=== PATIENT | male | born 1940 | race Caucasian/White ===

== ENCOUNTER 2019-12-14 14:00 | Inpatient (IN) | payer OTHER ==
[~2019-12-14] VITALS: Ht 170.2 cm; Wt 92.8 kg
[2019-12-14] MEDS ORDERED: SODIUM CHLORIDE 0.9% 1,000 ML IVB ONE (14:43)
[2019-12-14 16:10] LABS: Basophils # (auto) 0 10 ^3/uL (0-0.2); Basophils % (auto) 0.6 % (0.0-2.0); Eosinophils # (auto) 0.1 10 ^3/uL (0-0.8); Eosinophils % (auto) 1.3 % (0.0-7.0); Hematocrit 45.5 % (36.0-46.0); Hemoglobin 14.8 g/dL (12.2-16.2); Lymphocytes # (auto) 1.4 10 ^3/uL (0.4-5.4); Mean Corpuscular Hemoglobin 31.3 pg (28.0-32.0); Mean Corpuscular Hgb Conc. 32.6 g/dL (32.0-36.0); Mean Corpuscular Volume 95.9 fL (80.0-100.0); Monocytes # (auto) 0.5 10 ^3/uL (0-1.3); Monocytes % (auto) 6.3 % (0.0-12.0); Neutrophils # (auto) 5.5 10 ^3/uL (1.6-8.6); Neutrophils % (auto) 72.8 % (37.0-80.0); Nucleated Red Blood Cells % 0.1 %; Platelet Count (auto) 177 10^3/uL (140-450); Red Blood Cells 4.75 10^6/uL (4.0-5.20); Red Cell Distribution Width 14.3 % (11.8-14.3); White Blood Cell 7.5 10^3/uL (4.4-10.8)
[2019-12-14 16:15] LABS: Albumin 3.2 g/dL (3.4-5.0); Anion Gap 5 (5-15); Blood Urea Nitrogen 12 mg/dL (7-18); Calcium 9.3 mg/dL (8.5-10.1); Carbon Dioxide 29 mmol/L (21-32); Chloride 106 mmol/L (98-107); Glucose 161 mg/dL (74-106); Magnesium 2.2 mg/dL (1.6-2.6); Potassium 4.5 mmol/L (3.5-5.1); Sodium 140 mmol/L (136-145)
[2019-12-14 16:21] LABS: Alanine Aminotransferase 20 U/L (13-56); Alkaline Phosphatase 64 U/L (45-117); Aspartate Aminotransferase 23 U/L (15-37); BUN/Creatinine Ratio 12.9; Bilirubin, Total 0.8 mg/dL (0.2-1.0); GFR African American 74 mL/min; GFR Non-African American 61 mL/min; Total Protein 6.3 g/dL (6.4-8.2)
[2019-12-14 16:27] LABS: INR 1.13 (0.9-1.15); Partial Thromboplastin Time 23.9 sec (23.64-32.05)
[2019-12-14 16:45] LABS: Blood Alcohol < 3.0 mg/dL (0-5)
[2019-12-14] MEDS ORDERED: ACETAMINOPHEN 500 MG TAB PO PRN (18:45)
[2019-12-14] MEDS ORDERED: DEXTROSE (50%) 50ML SYRG IV PRN (18:45)
[2019-12-14] MEDS ORDERED: LACTULOSE 20Gm/30ML SOLN PO PRN (18:45)
[2019-12-14] MEDS ORDERED: ONDANSETRON HCL 4 MG/2 ML VIAL IV PRN (18:45)
[2019-12-14] MEDS ORDERED: traMADol HCL 50 MG TAB PO PRN (18:45)
[2019-12-14] MEDS ORDERED: MORPHINE SULF INJ 2 MG/ML SYRINGE 1ML IV PRN (18:45)
[2019-12-14] MEDS ORDERED: NITROGLYCERIN 0.4 MG SL TAB SL PRN (18:45)
[2019-12-14] MEDS: SODIUM CHLORIDE 0.9% 1,000 ML IV SCH (19:00)
[2019-12-14] MEDS ORDERED: LEVOTHYROXINE SODIUM 100 MCG/5 ML INJ IV ONE (19:15)
[2019-12-14 20:13] VITALS: BP 156/70
--- NOTE | 2019-12-14 20:13 | NUR ---
Telemetry admit from ER DAVE LANGLEY admitted to Telemetry unit. Patient oriented to ALEXSANDER LOPES, primary RN, unit, room, bed, and unit policies regarding patient care and visiting hours. Patient now on continuous telemetry monitoring, tele box # 49 and telemetry reading on arrival to unit is sinus bradycardia. Patient denies dizziness or headache at this time. Patient weighed by bedscale and encouraged to call as needed. All questions and concerns addressed, patient verbalized understanding. Bed is locked in lowest position, side rails x 2 are up, call light is within reach, and bed alarm is on.
[2019-12-14] MEDS ORDERED: GLIP10TA9 PO (21:21)
[2019-12-14] MEDS ORDERED: LISI10TA6 PO (21:21)
[2019-12-14] MEDS ORDERED: GABA300C10 PO (21:21)
[2019-12-14] MEDS ORDERED: ATOR20TA PO (21:21)
[2019-12-14] MEDS ORDERED: LEVO112T4 PO (21:23)
[2019-12-14] MEDS ORDERED: METO25TA93 PO (21:23)
[2019-12-14] MEDS ORDERED: ASPI-404 PO (21:23)
[2019-12-14] MEDS ORDERED: [UNRECOGNIZED DRUG - CODE] PO (21:25)
[2019-12-14] MEDS ORDERED: MULTCAP45 PO (21:25)
[2019-12-14] MEDS ORDERED: HYDR12.56 PO (21:27)
[2019-12-14] MEDS ORDERED: ATORVASTATIN 20 MG TAB PO SCH (22:00)
[2019-12-14] MEDS: ACCU-CHEK COMFORT CURVE STRIP VI SCH (22:00)
[2019-12-14 22:16] VITALS: BP 156/70
[2019-12-14 22:31] LABS: Urine WBC None Seen /hpf (0 - 3)
[2019-12-14] MEDS: InsuLIN REG 1unit/0.01ml Soln (100units/ml) SC SCH (22:46)
[2019-12-14 22:52] LABS: Urine Bacteria NONE SEEN /hpf (None Seen); Urine Blood Negative /uL (Negative); Urine Specific Gravity 1.009 (1.001-1.035)
[2019-12-14 23:01] LABS: Alcohol, Urine < 3.0 mg/dL (0-5); Amphetamine Screen, Urine NEGATIVE (NEGATIVE); Barbiturate Scree,Urine NEGATIVE (NEGATIVE); Benzodiazephine Screen, Urine NEGATIVE (NEGATIVE); Cannabinoid Screen, Urine NEGATIVE (NEGATIVE); Cocaine Screen, Urine NEGATIVE (NEGATIVE); Opiate Scree,Urine NEGATIVE (NEGATIVE); Phencyclidine Screen, Urine NEGATIVE (NEGATIVE)
[2019-12-15 03:19] VITALS: BP 131/78
[2019-12-15 05:48] VITALS: BP 102/63
[2019-12-15] MEDS: InsuLIN REG 1unit/0.01ml Soln (100units/ml) SC SCH ×2 (06:09→11:29)
[2019-12-15] MEDS: SODIUM CHLORIDE 0.9% 1,000 ML IV SCH (06:09)
[2019-12-15] MEDS: ACCU-CHEK COMFORT CURVE STRIP VI SCH ×2 (06:09→11:30)
[2019-12-15] MEDS ORDERED: LEVOTHYROXINE SODIUM 25 MCG TAB PO SCH (07:00)
--- NOTE | 2019-12-15 07:16 | NUR ---
Opening Shift Note Assumed care of patient, awake and alert. No S/S of distress/SOB or pain. Instructed on POC and to call for assist PRN, will continue to monitor for changes Q1hr and PRN. Bed is set in lowest locked position with side rails up x 2 for safety and call light is within reach.
[2019-12-15 08:05] VITALS: BP 137/68
[2019-12-15 09:00] VITALS: BP 137/68
[2019-12-15] MEDS ORDERED: ENOXAPARIN SOD 40 MG/0.4 ML SYRINGE SC SCH (10:00)
[2019-12-15] MEDS ORDERED: ASPirin 81 mg TAB PO SCH ×2 (10:00)
[2019-12-15 10:48] LABS: Free T3 2.81 pg/mL (2.3-4.2); Free T4 (Free Thyroxine) 0.99 ng/dL (0.89-1.76)
[2019-12-15] MEDS ORDERED: ADENOSINE 78 MG in GIVE UN-DILUTED 0 ML IV STA (12:15)
--- NOTE | 2019-12-15 12:30 | NUR ---
Orthostatic Vital Signs Supine: BP 158/77, HR 77, O2 Sat 95% Sitting: BP 146/76, HR 82, O2 Sat 95% Standing: BP 111/69, HR 98, O2 Sat 97%
[2019-12-15 13:00] VITALS: BP 134/55
--- NOTE | 2019-12-15 13:00 | NUR ---
Refusal of stress test Patient states he does not want to have a stress test at this time. BUTADIENE COMPRESSOR OPERATOR aware Yana Pham, and is at bedside. Patient made aware of indication for test and benefits. All questions answered at this time, and patient verbalized understanding. Patient states he would like to speak to his , and at this time patient is refusing to go forward with the stress test. Will follow up with patient.
[2019-12-15] MEDS ORDERED: METO25TA93 PO (14:09)
--- NOTE | 2019-12-15 14:16 | NUR ---
MD at bedside Dr. Mao, updated pt on POC and plan for discharge. Patient verbalized understanding.
[2019-12-15 14:29] VITALS: BP 134/55
--- NOTE | 2019-12-15 16:37 | NUR ---
Discharge instructions given as ordered. Encourage to follow up with PMD as instructed. All questions and concerns addressed. Patient verbalized understanding. IV removed with catheter intact, pressure dressing applied. Telemetry unit returned to ICU. Patient taken to family member's vehicle via wheelchair with all personal belongings, accompanied by staff. No distress noted at time of departure.
[2019-12-15] MEDS ORDERED: APIXABAN 2.5 MG TAB PO SCH (22:00)
== END 2019-12-15 16:37 | disposition home or self-care (01) | DRG 310 ==
LOC: ER 14:00 → EDBD 14:00 → EDSEX 14:00 → TELE 14:01 → TELE-WESTW 20:17
PROVIDERS: ADMIT Internal Medicine; ATTEND Hospitalist
DX: R00.1 Bradycardia, unspecified (principal); I48.91 Unspecified atrial fibrillation; I10 Essential (primary) hypertension; E11.9 Type 2 diabetes mellitus without complications; E03.9 Hypothyroidism, unspecified; E78.5 Hyperlipidemia, unspecified; I25.10 Atherosclerotic heart disease of native coronary artery without angina pectoris; F41.9 Anxiety disorder, unspecified; I44.0 Atrioventricular block, first degree; T44.7X5A Adverse effect of beta-adrenoreceptor antagonists, initial encounter; Z79.84 Long term (current) use of oral hypoglycemic drugs; Z79.82 Long term (current) use of aspirin; Z79.899 Other long term (current) drug therapy; Z86.73 Personal history of transient ischemic attack (TIA), and cerebral infarction without residual deficits; Y92.89 Other specified places as the place of occurrence of the external cause
CPT/HCPCS: 36415; 70450; 71045; 80053; 80307; 80320; 81001; 82550; 82962; 83036; 83735; 83880; 84439; 84443; 84481; 84484; 85025; 85610; 85730; 93306; 93886; 93971; G0378; J0153; J1815; J3490

== ENCOUNTER 2020-06-08 18:51 | Inpatient (IN) | payer OTHER ==
[~2020-06-08] VITALS: Ht 175.3 cm; Wt 87.3 kg
[~2020-06-08 18:51] MED LIST: ASPI-543 PO; ATOR20TA PO; GABA300C10 PO; GLIP10TA9 PO; LEVO112T4 PO; LISI-648 PO; METO25TA93 PO; MULTCAP45 PO
[2020-06-08] MEDS ORDERED: SODIUM CHLORIDE 0.9% 500 ML IV ONE (19:30)
[2020-06-08 19:48] LABS: Basophils # (auto) 0 10 ^3/uL (0-0.2); Basophils % (auto) 0.1 % (0.0-2.0); Eosinophils # (auto) 0 10 ^3/uL (0-0.8); Eosinophils % (auto) 0.1 % (0.0-7.0); Hematocrit 36.4 % (41.0-53.0); Hemoglobin 12.1 g/dL (13.5-17.5); Lymphocytes # (auto) 1.3 10 ^3/uL (0.4-5.4); Lymphocytes % (auto) 5.8 % (10.0-50.0); Mean Corpuscular Hemoglobin 29.8 pg (28.0-32.0); Mean Corpuscular Hgb Conc. 33.1 g/dL (32.0-36.0); Mean Corpuscular Volume 89.8 fL (80.0-100.0); Monocytes # (auto) 0.4 10 ^3/uL (0-1.3); Monocytes % (auto) 1.8 % (0.0-12.0); Neutrophils # (auto) 20.8 10 ^3/uL (1.6-8.6); Neutrophils % (auto) 92.2 % (37.0-80.0); Platelet Count (auto) 339 10^3/uL (140-450); Red Blood Cells 4.05 10^6/uL (4.5-5.90); White Blood Cell 22.6 10^3/uL (4.4-10.8)
[2020-06-08 20:05] LABS: INR 1.24 (0.9-1.15)
[2020-06-08 20:07] LABS: Alanine Aminotransferase 15 U/L (16-61); Albumin 2.3 g/dL (3.4-5.0); Anion Gap 6 (5-15); Blood Urea Nitrogen 46 mg/dL (7-18); Calcium 9.1 mg/dL (8.5-10.1); Carbon Dioxide 32 mmol/L (21-32); Chloride 100 mmol/L (98-107); Magnesium 2.2 mg/dL (1.6-2.6); Potassium 3.5 mmol/L (3.5-5.1); Sodium 138 mmol/L (136-145)
[2020-06-08 20:23] LABS: Alkaline Phosphatase 71 U/L (45-117); Aspartate Aminotransferase 24 U/L (15-37); BUN/Creatinine Ratio 13.3; Bilirubin, Total 0.5 mg/dL (0.2-1.0); GFR African American 22 mL/min; GFR Non-African American 18 mL/min
[2020-06-08 20:27] LABS: Glucose 46 mg/dL (74-106)
[2020-06-08] MEDS ORDERED: DEXTROSE (50%) 50ML SYRG IV ONE (20:30)
[2020-06-08] MEDS ORDERED: VANCOMYCIN 1GM/250ML 250 ML IV ONE (21:00)
[2020-06-08] MEDS ORDERED: PIPERACILLIN-TAZOB 3.375GM 100 ML IV ONE (21:00)
[2020-06-08] MEDS ORDERED: SODIUM CHLORIDE 0.9% 1,000 ML IV ONE (21:00)
[2020-06-08] MEDS ORDERED: DEXTROSE 10% 1,000 ML IV ONE ×2 (21:30→22:30)
[2020-06-08 21:34] LABS: Urine Bacteria FEW /hpf (None Seen); Urine Blood 2+ /uL (Negative); Urine Hyaline Cast FEW /lpf (0 - 2); Urine Mucus FEW (None Seen); Urine Specific Gravity 1.008 (1.001-1.035); Urine WBC 6 /hpf (0 - 3)
[2020-06-08] MEDS ORDERED: ONDANSETRON HCL 4 MG/2 ML VIAL IV PRN (22:30)
[2020-06-08] MEDS ORDERED: NITROGLYCERIN 0.4 MG SL TAB SL PRN (22:30)
[2020-06-08] MEDS ORDERED: MORPHINE SULF INJ 2 MG/ML SYRINGE 1ML IV PRN (22:30)
[2020-06-08] MEDS ORDERED: DEXTROSE (50%) 50ML SYRG IV PRN (22:30)
[2020-06-08] MEDS: InsuLIN REG 1unit/0.01ml Soln (100units/ml) SC SCH (23:57)
[2020-06-08] MEDS: ACCU-CHEK COMFORT CURVE STRIP VI SCH (23:57)
[2020-06-09] VITALS (7 sets, daily range): BP systolic 90–121; BP diastolic 41–109
--- NOTE | 2020-06-09 00:10 | NUR ---
Telemetry admit from ER DAVE HAMMER admitted to Telemetry unit after SBAR received. Patient oriented to primary RN, unit, room, bed, and unit policies regarding patient care and visiting hours. Patient now on continuous telemetry monitoring, tele box #41 and telemetry reading on arrival to unit is NSR. Patient placed on bedside oxygen, weighed by bedscale and encouraged to call if they need something. All questions and concerns addressed, patient verbalized understanding. Bed in lowest locked position, call light within reach, side rails up x2, fall precautions in place. Will continue to monitor Q1hr and PRN.
--- NOTE | 2020-06-09 02:45 | NUR ---
Rounds Patient confused AO to self only. Patient removed both IVs and attempted to get out of bed. Patient reoriented. Blood sugar at 73. Charge nurse made aware. Will continue to monitor.
--- NOTE | 2020-06-09 03:00 | NUR ---
IV insertion IV access obtained, via clean sterile technique by inserting 22 gauge catheter at after attempt. IV secured properly. No trauma to site. Patient tolerated procedure well.
[2020-06-09] MEDS: ACETAMINOPHEN 325 MG TAB PO PRN (03:25)
--- NOTE | 2020-06-09 03:30 | NUR ---
Rounds Patient is AOx4. No distress noted at this time. Fall precautions remain in place.
[2020-06-09] MEDS: InsuLIN REG 1unit/0.01ml Soln (100units/ml) SC SCH ×6 (03:40→23:54)
[2020-06-09] MEDS: ACCU-CHEK COMFORT CURVE STRIP VI SCH ×6 (03:40→23:54)
[2020-06-09 06:43] LABS: Basophils # (auto) 0 10 ^3/uL (0-0.2); Basophils % (auto) 0.1 % (0.0-2.0); Eosinophils # (auto) 0.1 10 ^3/uL (0-0.8); Eosinophils % (auto) 0.3 % (0.0-7.0); Hematocrit 35.9 % (41.0-53.0); Hemoglobin 11.9 g/dL (13.5-17.5); Lymphocytes # (auto) 1.2 10 ^3/uL (0.4-5.4); Lymphocytes % (auto) 6.8 % (10.0-50.0); Mean Corpuscular Hemoglobin 29.9 pg (28.0-32.0); Mean Corpuscular Hgb Conc. 33.2 g/dL (32.0-36.0); Mean Corpuscular Volume 89.9 fL (80.0-100.0); Monocytes # (auto) 0.2 10 ^3/uL (0-1.3); Monocytes % (auto) 1.3 % (0.0-12.0); Neutrophils # (auto) 16.7 10 ^3/uL (1.6-8.6); Neutrophils % (auto) 91.5 % (37.0-80.0); Platelet Count (auto) 301 10^3/uL (140-450); Red Blood Cells 3.99 10^6/uL (4.5-5.90); Red Cell Distribution Width 16.1 % (11.8-14.3); White Blood Cell 18.2 10^3/uL (4.4-10.8)
[2020-06-09 06:58] LABS: Calcium 8.7 mg/dL (8.5-10.1); Potassium 3.8 mmol/L (3.5-5.1)
[2020-06-09 07:01] LABS: BUN/Creatinine Ratio 16.7; Bilirubin, Total 0.6 mg/dL (0.2-1.0); Total Protein 5.3 g/dL (6.4-8.2)
[2020-06-09] MEDS ORDERED: DEXTROSE 10% 1,000 ML IV SCH ×2 (07:15→22:40)
--- NOTE | 2020-06-09 08:45 | NUR ---
Spoke to family After password verified. states if patient is stable, she would like patient transferred to [facility]. Informed of transfer process and hospitalist on the case will determine if patient is stable for transfer and has to put in request with healthcare social worker. Informed that this nurse will make oncoming MD aware but cannot guarantee that patient will be transferred per her request.
[2020-06-09] MEDS: cefTRIAXone 1GM/50ML D5W 50 ML IV SCH (08:58)
[2020-06-09] MEDS: PANTOPRAZOLE 40 MG TAB PO SCH (08:58)
--- NOTE | 2020-06-09 09:07 | NUR ---
Paging Dr. Moses Paging addiction psychiatrist hospitalist to make him aware of patient's low blood sugar. First BS check: 51, Second BS check: 50. Patient is alert. States that he has a stomach ache and "doesn't feel right". Provided patient with 2 cartons of orange juice. Upon reassessment BS: 71. Patient still stating that he doesn't feel good. Paging MD to make aware. Patient is alert and can make needs known. Bed is low, locked with 2x side rails up. Call light is within reach. Bed alarm is on for safety. Waiting for call back.
--- NOTE | 2020-06-09 09:50 | NUR ---
Spoke with family Spoke to patient's sonLauro after password was verified. Discussing POC including pending GI consult. All questions answered. Will continue to monitor Q1hr and PRN.
--- NOTE | 2020-06-09 09:59 | NUR ---
Sergioing Adonis Mata To inform him of patient's latest BS result. LVM with answering service and provided call back number.
--- NOTE | 2020-06-09 11:01 | NUR ---
Spoke with Adonis Mata Discussing current POC with MD. Informed MD of low BS level. New orders received. Addendum: 06/09/20 at 1126 by Vickie Lopez RN RN Cancelling all verbal orders. Per Dr. Adonis Mata, Dr. Mao will be MD that will follow up on this patient. stated that Dr. Mao will be calling this nurse for possible orders.
--- NOTE | 2020-06-09 12:35 | NUR ---
Dr. Mao at bedside MD aware of low blood sugars. Patient advised to stop taking Glipizide at home. No new orders received.
--- NOTE | 2020-06-09 12:39 | NUR ---
Dr. Sonia Brown at bedside For GI consult. Sonia Brown recommending EGD. Possible EGD for Monday 06/11. Sonia Brown and Dr. Mao discussing POC. Sonia Brown to input orders.
[2020-06-09] MEDS: DEXTROSE 10% 1,000 ML IV SCH (13:15)
[2020-06-09] MEDS ORDERED: ENOXAPARIN SOD 30 MG/0.3 ML SYRINGE SC ONE (13:15)
[2020-06-09] MEDS: SUCRALFATE 1 GM/10 ML ORAL SUSP PO SCH (17:26)
--- NOTE | 2020-06-09 17:45 | NUR ---
LVM for Dr. Mao 1700 VS: BP:90/41 mmHG, HR:85 BPM. Patient is asymptomatic at this time. This nurse raised the foot of the bed, patient currently has D10 at 60 ml/hr running per MD order. 1742 VS reassessment -BP: 95/54 mmHg HR: 92 bpm. Patient asymptomatic at this time. LVM for Dr. Mao. Waiting for call back.
--- NOTE | 2020-06-09 17:51 | NUR ---
Received call back Spoke to Dr. Mao in regards to patient's blood pressure. Received new orders for one liter of NS bolus. Orders read back to verify. Will carry out.
[2020-06-09] MEDS: NYSTATIN (MOUTH-THROAT) 500,000 UNITS/5 ML SUSP MT SCH ×2 (17:58→22:08)
[2020-06-09] MEDS ORDERED: SODIUM CHLORIDE 0.9% 1,000 ML IV ONE (18:00)
[2020-06-09] MEDS: ALUM & MAG HYDROX-SIMETH LIQ(MAALOX) 30 ML PO PRN (18:43)
--- NOTE | 2020-06-09 19:30 | NUR ---
Opening Shift Note Assumed care of patient, awake and alert x2. No S/S of distress/SOB or pain. Instructed on POC and to call for assist PRN, will continue to monitor for changes. Bed in lowest locked position, call light within reach, side rails up x2, fall precautions in place.
--- NOTE | 2020-06-09 21:40 | NUR ---
Rounds Patient remains confused, IV was pulled out, catheter intact, pressure dressing applied. Hematuria noted in lucio, will notify MD. Charge nurse notified, this nurse requesting sitter for patient safety. Fall precautions in place.
--- NOTE | 2020-06-09 22:50 | NUR ---
Spoke with MD Spoke with MD Schumacher in regards to hematuria noticed in lucio. Per MD, monitor for now and call MD back if hematuria worsens.
--- NOTE | 2020-06-10 02:08 | NUR ---
Spoke with MD Spoke with Dr. Schumacher in regards to increased hematuria and minimal clots noticed in lucio. New orders received and read back for verification.
--- NOTE | 2020-06-10 03:00 | NUR ---
Urine Urine has begun to clear without CBI from dark red to pink. Charge nurse has been aware. Will continue to monitor urine.
--- NOTE | 2020-06-10 03:20 | NUR ---
IV insertion IV access obtained, via clean sterile technique by inserting 22 gauge catheter at left upper arm after 1 attempt. IV secured properly. No trauma to site. Patient tolerated well. Sitter now at bedside for patient safety.
[2020-06-10] MEDS: ACCU-CHEK COMFORT CURVE STRIP VI SCH ×2 (04:00→08:25)
[2020-06-10] MEDS: InsuLIN REG 1unit/0.01ml Soln (100units/ml) SC SCH ×2 (04:20→08:00)
[2020-06-10 05:00] VITALS: BP 104/72
[2020-06-10] MEDS: DEXTROSE 10% 1,000 ML IV SCH (05:55)
[2020-06-10] MEDS: NYSTATIN (MOUTH-THROAT) 500,000 UNITS/5 ML SUSP MT SCH ×4 (06:00→21:39)
[2020-06-10 06:26] LABS: Potassium 3.9 mmol/L (3.5-5.1)
[2020-06-10] MEDS: SUCRALFATE 1 GM/10 ML ORAL SUSP PO SCH ×3 (06:26→17:00)
[2020-06-10 06:30] LABS: Basophils # (auto) 0 10 ^3/uL (0-0.2); Basophils % (auto) 0.2 % (0.0-2.0); Eosinophils # (auto) 0 10 ^3/uL (0-0.8); Eosinophils % (auto) 0.2 % (0.0-7.0); Hematocrit 37.4 % (41.0-53.0); Hemoglobin 12.3 g/dL (13.5-17.5); Lymphocytes # (auto) 1.2 10 ^3/uL (0.4-5.4); Lymphocytes % (auto) 6.9 % (10.0-50.0); Mean Corpuscular Hemoglobin 29.8 pg (28.0-32.0); Mean Corpuscular Volume 90.4 fL (80.0-100.0); Monocytes # (auto) 0.2 10 ^3/uL (0-1.3); Monocytes % (auto) 0.9 % (0.0-12.0); Neutrophils # (auto) 16.6 10 ^3/uL (1.6-8.6); Neutrophils % (auto) 91.8 % (37.0-80.0); Platelet Count (auto) 302 10^3/uL (140-450); Red Blood Cells 4.13 10^6/uL (4.5-5.90); Red Cell Distribution Width 16.1 % (11.8-14.3); White Blood Cell 18.1 10^3/uL (4.4-10.8)
[2020-06-10 06:32] LABS: BUN/Creatinine Ratio 20.6; Calcium 8.8 mg/dL (8.5-10.1)
[2020-06-10] MEDS: cefTRIAXone 1GM/50ML D5W 50 ML IV SCH (08:35)
[2020-06-10 09:00] VITALS: BP 102/62
[2020-06-10] MEDS: D5W/SOD CHLO 0.9% 1,000 ML IV SCH (09:10)
[2020-06-10] MEDS: PANTOPRAZOLE 40 MG TAB PO SCH (10:00)
[2020-06-10] MEDS ORDERED: DEXTROSE (50%) 50ML SYRG IV PRN (11:15)
[2020-06-10 13:54] VITALS: BP 113/42
--- NOTE | 2020-06-10 14:30 | NUR ---
Assessment Patient is an 79-year-old male who is alert and oriented. Prior to admission patient lived with his Palma and functioned with assistance. Patient refer me to his . Contact patient Palma . Advised Palma there is a social service consult for home health safety evaluation. Per Palma she would like patient to be placed at a skill nursing facility to get stronger. Informed Palma I will inform bedside nurse. Informed Palma a physical therapy evaluation will be needed to determine if patient meets criteria. Informed Palma she has the right to participate in all discharge planning. Palma verbalized understanding and agreed discharge plan. Bedside nurse was informed regarding SNF order and physical therapy evaluation. Addendum: 06/10/20 at 1431 by KAYLA CHASE Amended: Links added.
--- NOTE | 2020-06-10 16:27 | NUR ---
D/C planning Per social service consult for SNF placement. Faxed clinical information to [facility]. Pending acceptance.
--- NOTE | 2020-06-10 16:55 | NUR ---
CONSENT FOR EGD VIA TELEPHONE CONSENT BY PT , MADINA HAMMER. SECOND RN VERIFIED CONSENT FOR PROCEDURE. 1:1 SITTER AT BEDSIDE CONTINUES. PT WITH POOR APPETITE, COOPERATIVE WITH CARES.
[2020-06-10 17:00] VITALS: BP 102/58
[2020-06-10] MEDS: TAMSULOSIN HYDROCHLORIDE 0.4 MG CAP PO SCH (18:16)
--- NOTE | 2020-06-10 19:10 | NUR ---
Assumed care of patient from day shift RN, patient awake and alert and oriented x4. No S/S of distress/SOB or pain. Instructed on POC and to call for assist PRN, safety measures in place bed in lowest position, side rails up x2 and call light with in reach. will continue to monitor for changes Q1hr and PRN.
[2020-06-10 20:00] VITALS: BP 93/73
--- NOTE | 2020-06-10 21:18 | NUR ---
Obtained telephone consent Spoke with patients Palma regarding blood consent and she authorized consent for blood. consent signed by two nurses.
[2020-06-10] MEDS: ACETAMINOPHEN 325 MG TAB PO PRN (21:40)
--- NOTE | 2020-06-10 21:40 | NUR ---
pain medications Patient stated 3/10 pain to abdomen. Tylenol 650mg administered at this time.
[2020-06-10 21:53] VITALS: BP 93/73
--- NOTE | 2020-06-10 22:40 | NUR ---
pain reassessment Patient reassessed at this time patient stated 0/10 pain.
[2020-06-10] MEDS: ALUM & MAG HYDROX-SIMETH LIQ(MAALOX) 30 ML PO PRN (23:09)
--- NOTE | 2020-06-10 23:16 | NUR ---
IV insertion/iv removal IV DC'd due to leaking , DC'd with clean sterile technique, catheter fully intact. Pressure dressing applied to site. Patient tolerated well.IV access obtained, via clean sterile technique by inserting 22 gauge catheter at right forearm after 1 attempt. IV secured properly. No trauma to site. Patient tolerated well.
[2020-06-11] VITALS (9 sets, daily range): BP systolic 88–110; BP diastolic 39–70
[2020-06-11] MEDS: D5W/SOD CHLO 0.9% 1,000 ML IV SCH (01:51)
--- NOTE | 2020-06-11 05:00 | NUR ---
IV removal IV to right arm DC'd with clean sterile technique, catheter fully intact. Pressure dressing applied to site. Patient tolerated well. IV insertion IV access obtained, via clean sterile technique by inserting 20 gauge catheter at left upper arm after 1 attempt. IV secured properly. No trauma to site. Patient tolerated well.
[2020-06-11] MEDS: NYSTATIN (MOUTH-THROAT) 500,000 UNITS/5 ML SUSP MT SCH ×4 (05:51→21:57)
[2020-06-11] MEDS: SUCRALFATE 1 GM/10 ML ORAL SUSP PO SCH ×3 (06:23→17:00)
[2020-06-11 06:33] LABS: Hematocrit 33.6 % (41.0-53.0); Hemoglobin 10.9 g/dL (13.5-17.5); Mean Corpuscular Hemoglobin 29.6 pg (28.0-32.0); Mean Corpuscular Hgb Conc. 32.5 g/dL (32.0-36.0); Mean Corpuscular Volume 90.9 fL (80.0-100.0); Platelet Count (auto) 268 10^3/uL (140-450); Red Cell Distribution Width 16.5 % (11.8-14.3); White Blood Cell 9.2 10^3/uL (4.4-10.8)
[2020-06-11 06:34] LABS: Potassium 3.8 mmol/L (3.5-5.1)
[2020-06-11 06:41] LABS: BUN/Creatinine Ratio 26.1; Calcium 8.5 mg/dL (8.5-10.1)
[2020-06-11 06:43] LABS: Band Neutrophils % (manual) 0; Basophils % (manual) 0 (0.0-2.0); Blast Cells 0; Metamyelocytes % 0; Myelocytes % 0; Promyelocytes % 0; Reactive Lymphocytes 0
--- NOTE | 2020-06-11 07:11 | NUR ---
Endorsed care to day shift RN. patient denies sob/pain or distress, safety measures in place bed in lowest position side rails up x2 and call light with in reach. Patient has a sitter in room.
[2020-06-11 07:28] LABS: Eosinophils % (manual) 1 (0-7); Lymphocytes % (manual) 17 (10.0-50.0); Monocytes % (manual) 1 (0-12)
[2020-06-11] MEDS: cefTRIAXone 1GM/50ML D5W 50 ML IV SCH (09:05)
[2020-06-11] MEDS: PANTOPRAZOLE 40 MG TAB PO SCH (09:29)
--- NOTE | 2020-06-11 11:17 | NUR ---
1115 06/11/20 I called [facility] and requested to speak with Keymodule Assembly Machine Tender Candy regarding authorization for patient's continued stay as well as to let her know that [facility] is accepting, need authorization for SNF and transportation. Per Duncan, Candy is in a meeting and she will give me a call back.
[2020-06-11] MEDS: ACCU-CHEK COMFORT CURVE STRIP VI SCH ×3 (11:30→22:04)
--- NOTE | 2020-06-11 11:42 | NUR ---
1140 06/11/20 I received a call from [facility] Armor Officer Candy, she confirmed that inpatient stay continues to be authorized with previously provided authorization number. I made her aware that [facility] has accepted the patient. Per Candy, she will forward this information to her SNF team and she will call me back with authorization numbers for SNF as well as transportation.
--- NOTE | 2020-06-11 13:00 | NUR ---
PT OFF UNIT FOR PROCEDURE
--- NOTE | 2020-06-11 13:43 | NUR ---
I received a call from [facility] Policy Checker Candy ([phone]) letting me know that the authorization number for [facility] is [id number], and for transportation to call [facility] (they do not need prior authorization) [phone].
[2020-06-11] MEDS ORDERED: LIDOCAINE VISCOUS 2% 15ML UD ONE (14:31)
[2020-06-11] MEDS ORDERED: SODIUM CHLORIDE LOCK 10 ML ONE (14:31)
[2020-06-11] MEDS ORDERED: diphenhdrAMINE HCL 50 MG/1 ML VL ONE (14:32)
[2020-06-11] MEDS ORDERED: fentaNYL CITRATE 100 MCG/2 ML VL ONE (14:32)
[2020-06-11] MEDS ORDERED: MIDAZOLAM HCL 5 MG/ML-1ML VIAL ONE (14:32)
--- NOTE | 2020-06-11 15:52 | NUR ---
D/C Planning Per Pattie with [facility] patient has been accepted to room 208 bed 1 accepting , Dr. Granados. Per Lorrie with [facility] needs to be contact upon d/c day.
[2020-06-11] MEDS ORDERED: HYDROCORTISONE SOD SUCC 100 MG/2ML INJ VIAL IV ONE (16:30)
[2020-06-11] MEDS: SODIUM CHLORIDE 0.9% 1,000 ML IV SCH (17:26)
--- NOTE | 2020-06-11 18:05 | NUR ---
PT OFF FLOOR APPROX. 1300 FOR EGD. PER POST OP REPORT, PT HYPOTENSIVE POST OP BP 70s OVER 30s. DR FAUSTIN NOTIFIED, NEW ORDERS RECEIVED. PT BACK IN ROOM. LAST B/P . MONITORING CLOSELY. 1:1 SITTER AT BEDSIDE.
[2020-06-11] MEDS: TAMSULOSIN HYDROCHLORIDE 0.4 MG CAP PO SCH (18:22)
--- NOTE | 2020-06-11 18:22 | NUR ---
PICKARD CATHETER REMOVED.
--- NOTE | 2020-06-11 19:15 | NUR ---
Shift opening note Assumed care of patient from day shift RN, awake and alert and oriented to name and place. No S/S of distress/SOB or pain. Instructed on POC and to call for assist PRN, safety measures in place bed in lowest position side rails up x2 and call light with in reach. will continue to monitor for changes Q1hr and PRN.
[2020-06-11] MEDS: PANTOPRAZOLE 40 MG/10 ML VIAL INJ IV SCH (21:58)
--- NOTE | 2020-06-11 22:00 | NUR ---
assessed patients bladder is not distended and patient states no discomfort. Per sitter/ aide patient has had a large episode of urine incontinence since start of shift.
--- NOTE | 2020-06-11 22:30 | NUR ---
Elicia from [facility] called requesting patient update on transfer to SNF.
[2020-06-12] MEDS: ALUM & MAG HYDROX-SIMETH LIQ(MAALOX) 30 ML PO PRN (04:01)
--- NOTE | 2020-06-12 04:10 | NUR ---
Telephone call to Dr. Mao patient has urinary retention. New orders to insert Blevins catheter. Order read back and verified by Dr. Mao.
--- NOTE | 2020-06-12 04:31 | NUR ---
upon entering patients room from gathering Blevins catheter supplies, patient stated he had voided. Bladder scan showed minimal residual. Blevins catheter held as patient reports no urinary retention or discomfort at this time. Patient was educated to report any signs and symptoms of retention.
[2020-06-12 05:00] VITALS: BP_SYST 93; BP_SYST 98; BP_DIAS 43
[2020-06-12] MEDS: NYSTATIN (MOUTH-THROAT) 500,000 UNITS/5 ML SUSP MT SCH ×2 (06:23→12:04)
[2020-06-12] MEDS: SUCRALFATE 1 GM/10 ML ORAL SUSP PO SCH ×2 (06:23→12:04)
[2020-06-12] MEDS: ACCU-CHEK COMFORT CURVE STRIP VI SCH ×2 (06:23→11:30)
--- NOTE | 2020-06-12 07:10 | NUR ---
Endorsed care to day shift RN. Patient has no signs of sob/ pain or distress. Safety measures in place bed in lowest position, side rails up x2, and call light with in reach.
[2020-06-12] MEDS: SODIUM CHLORIDE 0.9% 1,000 ML IV SCH (09:29)
[2020-06-12] MEDS: cefTRIAXone 1GM/50ML D5W 50 ML IV SCH (09:29)
[2020-06-12] MEDS ORDERED: SODIUM CHLORIDE 0.9% 1,000 ML IV ONE (09:45)
[2020-06-12] MEDS: PANTOPRAZOLE 40 MG/10 ML VIAL INJ IV SCH (10:00)
--- NOTE | 2020-06-12 10:25 | NUR ---
BP 86/50. PULSE 71. NS BOLUS INITIATED.
[2020-06-12] MEDS ORDERED: FLUDROCORTISONE ACETATE 0.1 MG TAB PO ONE (10:30)
--- NOTE | 2020-06-12 11:18 | NUR ---
re-assessment Patient is discharged and cleared for transport. Per Brody housing case manager she has authorized [facility] Auth number [id number]. [facility] will transport patient to [facility] room 208 bed 1. Per Jaye at [facility] patient is cleared to go at anytime. Katarina MCGEE has been notified and given the phone number to [facility] for report [phone]. Addendum: 06/12/20 at 1120 by Hannah CHASE Amended: Links added.
--- NOTE | 2020-06-12 11:37 | NUR ---
BP 97/50 POST BOLUS.
--- NOTE | 2020-06-12 14:01 | NUR ---
REPORT CALLED TO DUNIA AT [facility]. AWAITING TRANSPORTATION AT THIS TIME.
--- NOTE | 2020-06-12 14:37 | NUR ---
RECEIVED CALL FROM [facility], THEY ARE RUNNING LATE FOR PATIENT SILK FOLDER. WILL ARRIVE AT FACILITY AT [phone] REPORTEDLY.
--- NOTE | 2020-06-12 15:27 | NUR ---
[facility] PICKED UP PT FROM FACILITY APPROX. [phone].
--- NOTE | 2020-06-12 15:30 | NUR ---
SPOKE WITH PT MDAINA VIA TELEPHONE YESTERDAY 06/11/2020 THAT PT WILL BE DISCHARGED TODAY TO [facility]. UNABLE TO REACH TODAY VIA TELEPHONE TO NOTIFY HER THAT PT HAS BEEN DISCHARGED.
== END 2020-06-12 15:20 | DRG 380 ==
LOC: EDBD 18:51 → EDUNIT# 18:51 → ER 18:51 → TELE-CENTR 18:52
PROVIDERS: ADMIT Nurse Practitioner; ATTEND Internal Medicine
PROC: 0DB68ZX Excision of Stomach, Via Natural or Artificial Opening Endoscopic, Diagnostic (ICD-10-PCS; 2020-06-11)
PROC: 0DB58ZX Excision of Esophagus, Via Natural or Artificial Opening Endoscopic, Diagnostic (ICD-10-PCS; 2020-06-11)
PROC: 0DB98ZX Excision of Duodenum, Via Natural or Artificial Opening Endoscopic, Diagnostic (ICD-10-PCS; principal; 2020-06-11 14:45)
DX: K22.10 Ulcer of esophagus without bleeding (principal); E43 Unspecified severe protein-calorie malnutrition; N39.0 Urinary tract infection, site not specified; N18.4 Chronic kidney disease, stage 4 (severe); N17.9 Acute kidney failure, unspecified; I95.9 Hypotension, unspecified; E86.0 Dehydration; R31.9 Hematuria, unspecified; E11.22 Type 2 diabetes mellitus with diabetic chronic kidney disease; E11.649 Type 2 diabetes mellitus with hypoglycemia without coma; E78.5 Hyperlipidemia, unspecified; I12.9 Hypertensive chronic kidney disease with stage 1 through stage 4 chronic kidney disease, or unspecified chronic kidney disease; Z20.828 Contact with and (suspected) exposure to other viral communicable diseases; K26.9 Duodenal ulcer, unspecified as acute or chronic, without hemorrhage or perforation; K29.70 Gastritis, unspecified, without bleeding; K29.80 Duodenitis without bleeding; K44.9 Diaphragmatic hernia without obstruction or gangrene; N40.0 Benign prostatic hyperplasia without lower urinary tract symptoms; Z79.84 Long term (current) use of oral hypoglycemic drugs; Z83.3 Family history of diabetes mellitus; Z86.73 Personal history of transient ischemic attack (TIA), and cerebral infarction without residual deficits; Z87.19 Personal history of other diseases of the digestive system; Z99.3 Dependence on wheelchair; Z87.891 Personal history of nicotine dependence
CPT/HCPCS: 36415; 43239; 70450; 71045; 71250; 74176; 80048; 80053; 81001; 82962; 83605; 83735; 83880; 84484; 85007; 85025; 85027; 85379; 85610; 85730; 86850; 86900; 86901; 87040; 87081; 87086; 96361; 96365; 96366; 96367; 96368; 96376; 97530; C9113; G0378; J0696; J1815; J2250; J2405; J2543; J7042

== ENCOUNTER 2020-07-06 01:09 | Inpatient (IN) | payer OTHER ==
[~2020-07-06] VITALS: Ht 172.7 cm; Wt 89.9 kg
[2020-07-06 02:30] LABS: Mean Corpuscular Hemoglobin 27.7 pg (28.0-32.0); Mean Corpuscular Hgb Conc. 30.3 g/dL (32.0-36.0); Mean Corpuscular Volume 91.3 fL (80.0-100.0)
[2020-07-06 02:31] LABS: Basophils # (auto) 0.1 10 ^3/uL (0-0.2); Basophils % (auto) 0.7 % (0.0-2.0); Eosinophils # (auto) 0.2 10 ^3/uL (0-0.8); Eosinophils % (auto) 1.1 % (0.0-7.0); Hematocrit 30.7 % (41.0-53.0); Hemoglobin 9.3 g/dL (13.5-17.5); Lymphocytes # (auto) 1.9 10 ^3/uL (0.4-5.4); Lymphocytes % (auto) 13.5 % (10.0-50.0); Monocytes % (auto) 7.3 % (0.0-12.0); Neutrophils # (auto) 10.8 10 ^3/uL (1.6-8.6); Neutrophils % (auto) 77.4 % (37.0-80.0); Platelet Count (auto) 194 10^3/uL (140-450); Red Blood Cells 3.36 10^6/uL (4.5-5.90); Red Cell Distribution Width 19.2 % (11.8-14.3); White Blood Cell 13.9 10^3/uL (4.4-10.8)
[2020-07-06 02:40] LABS: Albumin 1.9 g/dL (3.4-5.0)
[2020-07-06 02:42] LABS: Potassium 2.7 mmol/L (3.5-5.1)
[2020-07-06 02:43] LABS: BUN/Creatinine Ratio 9.4; Bilirubin, Total 0.3 mg/dL (0.2-1.0); Lactic Acid w/Reflex 3.5 mmol/L (0.4-2.0); Total Protein 5.4 g/dL (6.4-8.2)
[2020-07-06] MEDS ORDERED: POTASSIUM CHL 20 Meq TABLET PO ONE (02:45)
[2020-07-06] MEDS ORDERED: POTASSIUM CHL 20MEQ/100ML 100 ML IV ONE (02:45)
[2020-07-06] MEDS ORDERED: DEXTROSE 10% 1,000 ML IV ONE (10:45)
[2020-07-06 11:22] LABS: Urine Bacteria FEW /hpf (None Seen); Urine Blood TRACE /uL (Negative); Urine Specific Gravity 1.005 (1.001-1.035); Urine WBC 1 /hpf (0 - 3)
[2020-07-06] MEDS ORDERED: MORPHINE SULF INJ 2 MG/ML SYRINGE 1ML IV PRN (13:30)
[2020-07-06] MEDS ORDERED: NITROGLYCERIN 0.4 MG SL TAB SL PRN (13:30)
[2020-07-06] MEDS ORDERED: SODIUM CHLORIDE 0.9% 1,000 ML IV ONE (13:30)
[2020-07-06] MEDS: CLINDAMYCIN 300MG IV 50 ML IV SCH ×2 (15:03→22:00)
[2020-07-06] MEDS: ACCU-CHEK COMFORT CURVE STRIP VI SCH ×6 (16:05→23:48)
[2020-07-06] MEDS: D5W/SOD CHL 0.45% 1,000 ML IV SCH (18:39)
[2020-07-06 20:30] VITALS: BP 135/41
--- NOTE | 2020-07-06 21:00 | NUR ---
Telemetry admit from ER DAVE HAMMER admitted to Telemetry unit after SBAR received. Patient oriented to Holley Bean RN primary RN, unit, room, bed, and unit policies regarding patient care and visiting hours. Patient now on continuous telemetry monitoring, tele box # 62 and telemetry reading on arrival to unit is SR. Patient weighed by bedscale and encouraged to call if they need something. All questions and concerns addressed, patient verbalized understanding. Bed in lowest and locked position, bed alarm on, call light within reach, will continue to monitor Note: []
[2020-07-06 22:00] VITALS: BP 135/41
[2020-07-06] MEDS: GABAPENTIN 300 MG CAP PO SCH (22:00)
--- NOTE | 2020-07-06 22:15 | NUR ---
Blood sugar of 234, noted no PRN med at this time. Paged hospitalist, awaiting call back
[2020-07-06 22:41] LABS: BUN/Creatinine Ratio 9.3; Calcium 9.1 mg/dL (8.5-10.1); Potassium 3.1 mmol/L (3.5-5.1)
[2020-07-06] MEDS ORDERED: DEXTROSE (50%) 50ML SYRG IV PRN (22:45)
--- NOTE | 2020-07-06 22:45 | NUR ---
Hospitalist Efren called back and updated on patient's status and reason for call. Received new order at this time (see Emar), acknowledged and read back.
--- NOTE | 2020-07-06 23:00 | NUR ---
WOUND CARE NOTE Noted multiple wounds on right temporal area, bilateral heels and sacrum present upon admission. Pictures taken for reference. Applied alisson boots to both feet. Wound consult in place
[2020-07-06] MEDS: InsuLIN REG 1unit/0.01ml Soln (100units/ml) SC SCH (23:47)
--- NOTE | 2020-07-07 01:05 | NUR ---
Patient is confused and thought he's in [facility]. Removed his gown and tried to pull his IV out. Oriented to time, place and situation. Patient cooperative to care at times. Maintained bed alarm on, bed in lowest and locked position, call light within reach, will continue to monitor
--- NOTE | 2020-07-07 01:15 | NUR ---
Offload bilateral heels with alisson boots
[2020-07-07 01:27] VITALS: BP 135/51
[2020-07-07 05:00] VITALS: BP 133/70
[2020-07-07] MEDS: LEVOTHYROXINE SODIUM 112 MCG TAB PO SCH (06:07)
[2020-07-07] MEDS: CLINDAMYCIN 300MG IV 50 ML IV SCH ×3 (06:07→21:42)
[2020-07-07] MEDS: ACCU-CHEK COMFORT CURVE STRIP VI SCH ×4 (06:07→22:24)
[2020-07-07] MEDS: InsuLIN REG 1unit/0.01ml Soln (100units/ml) SC SCH ×4 (06:08→22:25)
[2020-07-07] MEDS: D5W/SOD CHL 0.45% 1,000 ML IV SCH ×2 (06:09→14:00)
--- NOTE | 2020-07-07 06:48 | NUR ---
Dr. Isabel at bedside
--- NOTE | 2020-07-07 07:35 | NUR ---
Opening Shift Note Assumed care of patient, awake and alert. No S/S of distress/SOB or pain. Instructed on POC and to call for assistance PRN bed is locked and in lowest position bed rails up x2, call light within reach, cozzy boots on. Will continue to monitor for changes Q1hr and PRN.
[2020-07-07 09:00] VITALS: BP 127/58
[2020-07-07] MEDS: cefTRIAXone 1GM/50ML D5W 50 ML IV SCH (10:19)
[2020-07-07] MEDS: ASPirin-EC 81 mg tab PO SCH (10:20)
[2020-07-07] MEDS: GABAPENTIN 300 MG CAP PO SCH ×2 (10:20→21:43)
[2020-07-07] MEDS: METOPROLOL SUCCINATE XL 50 MG TAB PO SCH (10:23)
[2020-07-07] MEDS: LISINOPRIL 10 MG TAB PO SCH (10:24)
--- NOTE | 2020-07-07 11:10 | NUR ---
WOUND CARE NOTE: IN TO SEE PATIENT AT THIS TIME PER WOUND CARE CONSULT REQUEST. PATIENT WAS ADMITTED TO [facility] WITH DIAGNOSIS OF HYPOGLYCEMIA. CURRENT FRANKLIN SCORE IS 15. PATIENT IS ASSESSED TO ASSIST WITH HIS TURNING/REPOSITIONING. ALL WOUNDS WERE PHOTOGRAPHED UPON PRESENTATION TO [facility] BY BEDSIDE NURSE FOR REFERENCE. PATIENT HAS MULTIPLE WOUNDS, INCLUDING ABRASION TO RIGHT TEMPORAL SCALP, DTI TO BILAT HEELS, LEFT BUTTOCK, UNSTAGEABLE PRESSURE INJURY TO LEFT HEEL, STAGE 2 LEFT BUTTOCK, AND SKIN TEAR TO THE RIGHT FOREARM. ALL WOUND STATS CAN BE FOUND WITHIN WOUND ASSESSMENT, LINKED TO THIS NOTE. RECOMMEND: FREQUENT TURN SCHEDULE Q 2 HOURS, PRN CONDITION PERMITS, WITH PRESSURE REDISTRIBUTION USING PILLOWS/WEDGES, SPECIALTY AIR MATTRESS, DOC FOAM BOOTS TO BILATERAL FEET/HEELS, EOD/PRN DRESSING CHANGE TO RIGHT FOREARM, BID/PRN DRESSING CHANGE TO LEFT BUTTOCK/SACRUM WOUNDS WITH ZGUARD, OPTIFOAM GENTLE DRESSINGS, DIETARY CONSULT, SKIN/WOUND CARE PLAN, CONTINUED MONITORING BY WOUND CARE TEAM. Addendum: 07/07/20 at 1709 by Altagracia Brink RN Amended: Links added.
--- NOTE | 2020-07-07 11:38 | NUR ---
Nutrition Assessment Notes Please refer to link for full assessment notes. Est Energy needs: 6525-2127 kcals (20-23 kcal/kgBW) Est Protein needs: 83-91 gms/day (1.0-1.1 gm/kgBW) Will continue to monitor and reassess prn. Addendum: 07/07/20 at [address] Amended: Links added.
[2020-07-07 12:48] LABS: BUN/Creatinine Ratio 8.7; Calcium 8.8 mg/dL (8.5-10.1)
[2020-07-07 13:00] VITALS: BP 126/83
[2020-07-07] MEDS ORDERED: D5W/SOD CHL 0.45% 1,000 ML IV SCH (15:30)
--- NOTE | 2020-07-07 16:00 | NUR ---
PT REQUESTED THAT P.T. EVALUATION BE DONE TOMORROW.
[2020-07-07 16:35] VITALS: BP 123/57
--- NOTE | 2020-07-07 17:52 | NUR ---
PATIENT REFUSED BLOOD GLUCOSE VERBALIZED EDUCATION ON WHY PATIENT NEEDS ACCUCHECK , PATIENT STILL REFUSED.
--- NOTE | 2020-07-07 19:30 | NUR ---
Opening Shift Note Assumed care of patient, confused. No S/S of distress/SOB or pain. Cooperative to care at times, sitter at bedside. Bed in lowest and locked position, will continue to monitor for changes Q1hr and PRN.
[2020-07-07 22:00] VITALS: BP 127/67
[2020-07-08 05:00] VITALS: BP 130/45
[2020-07-08] MEDS: ACCU-CHEK COMFORT CURVE STRIP VI SCH ×3 (06:03→17:10)
[2020-07-08] MEDS: LEVOTHYROXINE SODIUM 112 MCG TAB PO SCH (06:03)
[2020-07-08] MEDS: CLINDAMYCIN 300MG IV 50 ML IV SCH ×3 (06:03→21:30)
[2020-07-08] MEDS: InsuLIN REG 1unit/0.01ml Soln (100units/ml) SC SCH ×3 (06:36→17:11)
[2020-07-08 07:35] LABS: Lactic Acid w/Reflex 2.5 mmol/L (0.4-2.0)
[2020-07-08 07:41] LABS: BUN/Creatinine Ratio 6.4; Calcium 8.8 mg/dL (8.5-10.1)
[2020-07-08 07:54] LABS: Potassium 2.6 mmol/L (3.5-5.1)
--- NOTE | 2020-07-08 07:58 | NUR ---
POTASSIUM Message left with Dr Mao to inform of patient potassium level of 2.6. No orders at this time. Patient on continuous heart monitor. Will monitor patient closely.
[2020-07-08 09:00] VITALS: BP 124/72
[2020-07-08] MEDS ORDERED: POTASSIUM CHL 20 Meq TABLET PO ONE (09:00)
[2020-07-08] MEDS: LISINOPRIL 10 MG TAB PO SCH (09:13)
[2020-07-08] MEDS: GABAPENTIN 300 MG CAP PO SCH ×2 (09:13→21:30)
[2020-07-08] MEDS: METOPROLOL SUCCINATE XL 50 MG TAB PO SCH (09:14)
[2020-07-08] MEDS: ASPirin-EC 81 mg tab PO SCH (09:14)
[2020-07-08] MEDS: cefTRIAXone 1GM/50ML D5W 50 ML IV SCH (09:14)
[2020-07-08] MEDS: POTASSIUM CHL 20MEQ/100ML 100 ML IV SCH ×2 (10:02→12:59)
[2020-07-08 10:07] LABS: Folate (Folic Acid) 4.16 ng/mL (5.38-24)
--- NOTE | 2020-07-08 11:17 | NUR ---
I faxed home health order to [facility].
--- NOTE | 2020-07-08 12:15 | NUR ---
Up to bedside chair with assist of physical therapy.
[2020-07-08 13:00] VITALS: BP 123/80
--- NOTE | 2020-07-08 13:00 | NUR ---
Patient returned to bed with assistance of physical therapy. Patient tolerated well.
--- NOTE | 2020-07-08 15:00 | NUR ---
MD BUSHRA Mao rounding on patient with primary RN. Plan of care discussed including labs, medications discussed, including family concerns. Phone call placed to daughter "Echo" after password verified, family updated by Doctor on plan of care and discharge needs.
--- NOTE | 2020-07-08 15:22 | NUR ---
Assessment Patient is an 80-year-old male who is alert and oriented. Prior to admission patient lived with his Palma and functioned with assistance. Per patient his helps him with his ADL's. Per patient he has a walker, bedside commode, shower chair, and wheelchair for home use. Per patient he will return home to his prior living arrangements post discharge and [facility] [employer] [facility] will transport patient upon discharge day. Advised patient there is a social service consult for home health wound care and safety care. Informed patient clinical information will be faxed to [facility]. Informed patient he has the right to participate in all discharge planning. Patient verbalized understanding and agreed to discharge plan. Per Amelia with [facility] order has been received and they will service the patient within 24-48hrs upon d/c day. Addendum: 07/08/20 at 1530 by KAYLA CHASE Amended: Links added.
[2020-07-08 17:00] VITALS: BP 147/65
--- NOTE | 2020-07-08 17:11 | NUR ---
Blood sugar 156, 2 units insulin administered as ordered. Verified with two RN's.
--- NOTE | 2020-07-08 20:00 | NUR ---
Opening Shift Note Assumed care of patient, awake and alert, confused. No S/S of distress/SOB or pain. Instructed on POC and to call for assist PRN, will continue to monitor for changes Q1hr and PRN.Sitter at bedside.
[2020-07-08] MEDS: DONEPEZIL HYDROCHLORIDE 5 MG TAB PO SCH (21:30)
[2020-07-08] MEDS: ATORVASTATIN 20 MG TAB PO SCH (21:30)
[2020-07-08 22:00] VITALS: BP 126/68
[2020-07-09] VITALS (7 sets, daily range): BP systolic 111–150; BP diastolic 49–80
[2020-07-09] MEDS: ACCU-CHEK COMFORT CURVE STRIP VI SCH ×4 (00:01→18:24)
[2020-07-09] MEDS: InsuLIN REG 1unit/0.01ml Soln (100units/ml) SC SCH ×4 (00:01→18:26)
--- NOTE | 2020-07-09 00:54 | NUR ---
Elicia ,staff from [facility] is asking if the patient is discharge, told that no order yet, probably today.
[2020-07-09] MEDS: CLINDAMYCIN 300MG IV 50 ML IV SCH ×3 (05:49→22:00)
[2020-07-09] MEDS: LEVOTHYROXINE SODIUM 112 MCG TAB PO SCH (06:44)
--- NOTE | 2020-07-09 07:37 | NUR ---
Care report given to Haroon Mcgrath, patient is resting no distress.
--- NOTE | 2020-07-09 07:40 | NUR ---
Opening Shift Note Assumed care of patient from noc shift rn, awake and alert, confusion noted but pleasant. Denies pain at this time, no S/S of distress or SOB. Instructed on POC and to call for assist PRN. Bed in locked and low position with x2 rails up. Will continue to monitor for changes Q1hr and PRN.Sitter at bedside for safety.
[2020-07-09 08:22] LABS: Calcium 9.7 mg/dL (8.5-10.1); Magnesium 2.1 mg/dL (1.6-2.6); Potassium 3.4 mmol/L (3.5-5.1)
[2020-07-09 08:24] LABS: BUN/Creatinine Ratio 7.3
[2020-07-09] MEDS: GABAPENTIN 300 MG CAP PO SCH ×2 (09:42→22:08)
[2020-07-09] MEDS: METOPROLOL SUCCINATE XL 50 MG TAB PO SCH (09:44)
[2020-07-09] MEDS: ASPirin-EC 81 mg tab PO SCH (09:45)
[2020-07-09] MEDS: LISINOPRIL 10 MG TAB PO SCH (09:45)
--- NOTE | 2020-07-09 10:12 | NUR ---
Dr. Mao called, discussed patient's discharge plan. Want to be contacted to discuss co-pay if being discharged to a facility. Will continue to monitor for changes.
--- NOTE | 2020-07-09 10:17 | NUR ---
I spoke with [facility] Vaccine Specialist Sharon Mcdonald-she let me know that her MD was wanting to send patient to SNF but that he would have a co-pay of 160$ per day. I called patient's Palma Lopez and she said she can not afford the co-pay to send him to SNF. I relayed this information to social secretary Francoise.
--- NOTE | 2020-07-09 10:28 | NUR ---
Called and left voice message with . Will call again to update on discharge plan.
[2020-07-09] MEDS ORDERED: POTASSIUM CHL 20 Meq TABLET PO ONE (10:30)
--- NOTE | 2020-07-09 12:42 | NUR ---
CALLED AGAIN AND UNABLE TO REACH , MADINA LEFT A VOICEMAIL AND AWAITING A CALL BACK
--- NOTE | 2020-07-09 13:18 | NUR ---
SPOKE TO PATIENT'S DAUGHTER IN[place], SHEILA. PER FAMILY MEMBER THEY ARE UNABLE TO MAKE CO-PAYMENT FOR SNF PLACEMENT, AND OK WITH DISCHARGE HOME WITH HOME HEALTH. WILL MAKE MD AWARE.
--- NOTE | 2020-07-09 13:46 | NUR ---
D/C Planning Placed call to [facility] [employer] spoke to [facility]. Per [facility] the earliest they can transport patient is at 8:40pm[place] [id number]. Information for private caregivers was given to patient daughter in law Echo . ARELY Mcgrath will be informed.
--- NOTE | 2020-07-09 16:20 | NUR ---
Spoke to FRANKIE Rivera from [place]. Updated her on discharge plan. Per pricing manager, Nicole patient does not have any medication for diabetic management and also need order for metoprolol and requesting hospital bed. Will Page and make aware.
[2020-07-09] MEDS ORDERED: [UNRECOGNIZED DRUG - CODE] XX (16:21)
[2020-07-09] MEDS ORDERED: INSREGI SC (16:21)
[2020-07-09] MEDS ORDERED: BLOO1KIT22 XX (16:21)
[2020-07-09] MEDS ORDERED: DONE5TAB31 PO (16:21)
--- NOTE | 2020-07-09 18:42 | NUR ---
IV INFILTRATED. UNABLE TO GIVE FOLIC ACID ONE TIME MED, AT THIS TIME. ENDORSED TO CRISTOBAL NUNEZ RN. Addendum: 07/09/20 at 2014 by Ramila Her RN WRONG ENTRY
[2020-07-09] MEDS ORDERED: FOLIC ACID 1 MG TAB PO ONE (18:45)
--- NOTE | 2020-07-09 18:52 | NUR ---
WOUND CARE DONE AND PICTURES TAKEN FOR DISCHARGE
--- NOTE | 2020-07-09 18:55 | NUR ---
MRSA swap collected and sent to lab. [facility] discharge from [facility]
--- NOTE | 2020-07-09 18:58 | NUR ---
Discharge endorsed to noc shift rn, Donna
--- NOTE | 2020-07-09 20:00 | NUR ---
Opening Shift Note Assumed care of patient, awake and alert. No S/S of distress/SOB or pain. Instructed on POC and to call for assist PRN, will continue to monitor for changes Q1hr and PRN.Haroon Mcgrath said as per report the transport is set up for 2039 to come and pick-up the patient.
--- NOTE | 2020-07-09 20:40 | NUR ---
Tiffanie Thompson called the transport phone no. couple of times and only answering machine, and then after so many tried, Asifcarlos answered and said they need a cellphone no. so that they can text me when and what time the transport will come. And till this [id number], they did not text the R.n. and at 2300 Rprema informed the storehouse clerk regarding the issue, and said we cant anything about it, so possible tomorrow the patient may go home. And at 2300 I informed the family regarding the issue, and told maybe tomorrow the will go home.
[2020-07-09] MEDS: ATORVASTATIN 20 MG TAB PO SCH (22:08)
[2020-07-09] MEDS: DONEPEZIL HYDROCHLORIDE 5 MG TAB PO SCH (22:08)
[2020-07-10] MEDS: ACCU-CHEK COMFORT CURVE STRIP VI SCH ×3 (00:50→12:11)
[2020-07-10] MEDS: InsuLIN REG 1unit/0.01ml Soln (100units/ml) SC SCH ×3 (00:51→12:12)
--- NOTE | 2020-07-10 00:52 | NUR ---
R.N. resource nurse arrange the transport for the patient and is will call, [place] [id number], the day shift R.n to call the family .
[2020-07-10 05:31] VITALS: BP 146/62
[2020-07-10] MEDS: CLINDAMYCIN 300MG IV 50 ML IV SCH ×2 (05:52→14:10)
--- NOTE | 2020-07-10 07:38 | NUR ---
Received patient from noc shift rn. Patient awake and alert. Denies pain, SOB, no s/s of distress noted. Plan of care discussed. Bed in low and locked position with x2 rails up. Patient is awaiting transportation set up for discharge home. Will contact case management make new arrangements.
[2020-07-10 08:00] VITALS: BP 134/51
[2020-07-10] MEDS: LEVOTHYROXINE SODIUM 112 MCG TAB PO SCH (08:10)
--- NOTE | 2020-07-10 08:25 | NUR ---
Spoke to Case management Lisa Leblanc to inform her of need for transportation home.
[2020-07-10 08:34] VITALS: BP 134/51
[2020-07-10] MEDS ORDERED: FOLIC ACID 1 MG in D5W 5% 50 ML INJ SCH (10:00)
--- NOTE | 2020-07-10 10:12 | NUR ---
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 I called [employer] [phone] and was unable to speak with anyone. I also tried alternate number [phone] and there was a recording that said to call back during normal business hours. I called [facility] Dorr Operator Candy [phone] and made her aware of transportation issue, she will give me a call back. I called nurse Mcgrath to give her an update-I let her know I would call back when I hear from [facility] Operator.
[2020-07-10] MEDS: METOPROLOL SUCCINATE XL 50 MG TAB PO SCH (10:41)
[2020-07-10] MEDS: GABAPENTIN 300 MG CAP PO SCH (10:41)
[2020-07-10] MEDS: ASPirin-EC 81 mg tab PO SCH (10:42)
[2020-07-10] MEDS: LISINOPRIL 10 MG TAB PO SCH (10:42)
--- NOTE | 2020-07-10 11:38 | NUR ---
Lisa DAVID called and gave new update that patient's transportation has been set up with [facility] and they will come with wheelchair. Also made Lisa aware that Patient's insurance healthcare consultant Elly had called at [phone] regarding transportation with [facility] [phone]
--- NOTE | 2020-07-10 11:41 | NUR ---
I called [facility] [phone] and spoke with Elicia-patient will be picked up at 1300 for wheelchair transport home (wheelchair to be provided by transportation company). I spoke with patient's daughter in law Echo ([phone]) and made her aware of seed cone picker time. I relayed the above information to nurse Mcgrath as well as Candy at [facility].
[2020-07-10 12:25] VITALS: BP 147/82
--- NOTE | 2020-07-10 13:47 | NUR ---
I spoke with Toshia from [facility] [phone], she said they will be here within the hour to pickling operator patient (arranged through [facility])-she will call nurse Mcgrath with a more specific pickling operator time-I relayed this information to nurse Mcgrath.
--- NOTE | 2020-07-10 14:29 | NUR ---
I spoke to Lisa Leblanc, verified that patient will be picked up by [facility] after 1pm. Addendum: 07/10/20 at 1433 by Ramila Her RN This entry was for 3500
--- NOTE | 2020-07-10 15:25 | NUR ---
Patient discharge home with [facility]. Copies of discharge summary and follow up instructions given to patient. Patient was picked up by [facility] via wheelchair. IV discontinued and tele monitor returned to ICU. No s/s distress noted. Family aware and expecting patient.
--- NOTE | 2020-07-12 09:46 | NUR ---
I faxed hospital bed order to [facility].
== END 2020-07-10 15:25 | disposition home health service (06) | DRG 637 ==
LOC: EDBD 01:09 → ER 01:09 → OVERFLOW 13:10 → TELE-WESTW 20:30
PROVIDERS: ADMIT Nurse Practitioner Acute Care; ATTEND Hospitalist
DX: E11.649 Type 2 diabetes mellitus with hypoglycemia without coma (principal); G93.41 Metabolic encephalopathy; D68.59 Other primary thrombophilia; E87.1 Hypo-osmolality and hyponatremia; L89.629 Pressure ulcer of left heel, unspecified stage; I48.0 Paroxysmal atrial fibrillation; E78.5 Hyperlipidemia, unspecified; I25.10 Atherosclerotic heart disease of native coronary artery without angina pectoris; E86.0 Dehydration; L89.619 Pressure ulcer of right heel, unspecified stage; F01.50 Vascular dementia, unspecified severity, without behavioral disturbance, psychotic disturbance, mood disturbance, and anxiety; E03.9 Hypothyroidism, unspecified; E11.22 Type 2 diabetes mellitus with diabetic chronic kidney disease; I10 Essential (primary) hypertension; E53.8 Deficiency of other specified B group vitamins; E87.5 Hyperkalemia; F17.200 Nicotine dependence, unspecified, uncomplicated; G89.29 Other chronic pain; L89.152 Pressure ulcer of sacral region, stage 2; N40.0 Benign prostatic hyperplasia without lower urinary tract symptoms; Z74.01 Bed confinement status; Z79.4 Long term (current) use of insulin; Z79.82 Long term (current) use of aspirin; Z79.899 Other long term (current) drug therapy; Z82.0 Family history of epilepsy and other diseases of the nervous system; Z83.3 Family history of diabetes mellitus; Z86.73 Personal history of transient ischemic attack (TIA), and cerebral infarction without residual deficits; Z87.440 Personal history of urinary (tract) infections; Z95.5 Presence of coronary angioplasty implant and graft
CPT/HCPCS: 36415; 71045; 80048; 80053; 81001; 82607; 82746; 82962; 83605; 83735; 84443; 85025; 87040; 87077; 87081; 87186; 87205; 96365; 96366; 96367; 99291; G0378; J0696; J1815; J3480; J3490; J7060